=== PATIENT | female | born 1950 | race Two or more races ===

== ENCOUNTER 2022-04-12 18:40 | Inpatient (IN) | payer OTHER ==
[~2022-04-12] VITALS: Ht 160 cm; Wt 89.4 kg
[2022-04-12 18:59] LABS: Basophils # (auto) 0.1 10 ^3/uL (0-0.2); Basophils % (auto) 1.1 % (0.0-2.0); Eosinophils # (auto) 0 10 ^3/uL (0-0.8); Eosinophils % (auto) 0.4 % (0.0-7.0); Hematocrit 37.4 % (36.0-46.0); Hemoglobin 12.4 g/dL (12.2-16.2); Lymphocytes # (auto) 1.9 10 ^3/uL (0.4-5.4); Lymphocytes % (auto) 21.2 % (10.0-50.0); Mean Corpuscular Hemoglobin 31.2 pg (28.0-32.0); Mean Corpuscular Volume 94.3 fL (80.0-100.0); Monocytes # (auto) 0.5 10 ^3/uL (0-1.3); Monocytes % (auto) 5.3 % (0.0-12.0); Neutrophils # (auto) 6.3 10 ^3/uL (1.6-8.6); Nucleated Red Blood Cells % 0.2 %; Red Blood Cells 3.97 10^6/uL (4.0-5.20); Red Cell Distribution Width 14.3 % (11.8-14.3); White Blood Cell 8.8 10^3/uL (4.4-10.8)
[2022-04-12 20:27] LABS: Albumin 3.9 g/dL (3.4-5.0); Potassium 4.9 mmol/L (3.5-5.1)
[2022-04-12 20:31] LABS: BUN/Creatinine Ratio 25.9; Bilirubin, Total 0.9 mg/dL (0.2-1.0); Total Protein 6.8 g/dL (6.4-8.2)
[2022-04-12 20:42] LABS: INR 1.01 (0.9-1.15); Partial Thromboplastin Time 36.7 sec (24.6-33.4)
[2022-04-12] MEDS ORDERED: ENOXAPARIN SOD 80 MG/0.8ML SYRINGE SC ONE (21:00)
[2022-04-12] MEDS ORDERED: ACETAMINOPHEN 325 MG TAB PO PRN (21:30)
[2022-04-12] MEDS ORDERED: ONDANSETRON HCL 4 MG/2 ML VIAL IV PRN (21:30)
[2022-04-12] MEDS ORDERED: NITROGLYCERIN 0.4 MG SL TAB SL PRN (21:30)
[2022-04-12] MEDS ORDERED: MORPHINE SULFATE INJ 2 MG/ml SYRG IV PRN (21:30)
[2022-04-12] MEDS: ATORVASTATIN 20 MG TAB PO SCH (22:04)
[2022-04-12] MEDS ORDERED: PREGABALIN CAPSULE 75 MG CAP PO ONE (23:15)
[2022-04-13 06:39] LABS: Basophils # (auto) 0.1 10 ^3/uL (0-0.2); Basophils % (auto) 1.1 % (0.0-2.0); Eosinophils # (auto) 0.2 10 ^3/uL (0-0.8); Eosinophils % (auto) 4.1 % (0.0-7.0); Hematocrit 37.1 % (36.0-46.0); Hemoglobin 12.4 g/dL (12.2-16.2); Lymphocytes # (auto) 2.7 10 ^3/uL (0.4-5.4); Lymphocytes % (auto) 46.6 % (10.0-50.0); Mean Corpuscular Hemoglobin 31.5 pg (28.0-32.0); Mean Corpuscular Hgb Conc. 33.3 g/dL (32.0-36.0); Mean Corpuscular Volume 94.7 fL (80.0-100.0); Monocytes # (auto) 0.5 10 ^3/uL (0-1.3); Monocytes % (auto) 7.9 % (0.0-12.0); Neutrophils # (auto) 2.4 10 ^3/uL (1.6-8.6); Neutrophils % (auto) 40.3 % (37.0-80.0); Nucleated Red Blood Cells % 0.2 %; Red Blood Cells 3.92 10^6/uL (4.0-5.20); Red Cell Distribution Width 14.1 % (11.8-14.3); White Blood Cell 5.8 10^3/uL (4.4-10.8)
[2022-04-13 06:58] LABS: Potassium 3.7 mmol/L (3.5-5.1)
[2022-04-13 07:03] LABS: Albumin 3.6 g/dL (3.4-5.0); BUN/Creatinine Ratio 20.3; Calcium 8.9 mg/dL (8.5-10.1)
[2022-04-13 07:06] LABS: Bilirubin, Total 0.7 mg/dL (0.2-1.0); Total Protein 6.8 g/dL (6.4-8.2)
[2022-04-13] MEDS: ASPirin 81 mg TAB PO SCH (09:42)
[2022-04-13] MEDS: LISINOPRIL 5 MG TAB PO SCH (09:44)
[2022-04-13] MEDS: ATORVASTATIN 20 MG TAB PO SCH (09:44)
[2022-04-13] MEDS ORDERED: PANTOPRAZOLE 40 MG TAB PO SCH (10:00)
[2022-04-13] MEDS ORDERED: LACTULOSE 20Gm/30ML SOLN PO ONE (11:30)
[2022-04-13] MEDS ORDERED: TICAGRELOR 90 MG TAB PO ONE (14:45)
[2022-04-13] MEDS ORDERED: POTASSIUM EFFERVESENT TAB 25 MEQ PO ONE (15:05)
[2022-04-13 18:51] VITALS: BP 122/56
[2022-04-13] MEDS ORDERED: BUPR100T8 PO (19:30)
[2022-04-13] MEDS ORDERED: BACL10TA PO (19:30)
[2022-04-13] MEDS ORDERED: SIMV-13 PO (19:30)
[2022-04-13] MEDS ORDERED: PREG-109 PO (19:30)
[2022-04-13] MEDS ORDERED: NALT50TA5 PO (19:30)
[2022-04-13] MEDS ORDERED: FLUO40CA PO (19:30)
[2022-04-13] MEDS: TICAGRELOR 90 MG TAB GT SCH (21:46)
[2022-04-13 22:00] VITALS: BP 114/63
[2022-04-14] VITALS (9 sets, daily range): BP systolic 90–112; BP diastolic 42–55
[2022-04-14] MEDS: ASPirin 81 mg TAB PO SCH (09:35)
[2022-04-14] MEDS: TICAGRELOR 90 MG TAB GT SCH (09:36)
[2022-04-14] MEDS: LISINOPRIL 5 MG TAB PO SCH (10:00)
[2022-04-14] MEDS ORDERED: BUPR100T7 PO (10:05)
[2022-04-14] MEDS ORDERED: MIDAZOLAM HCL 2MG/2ML 2ml VIAL (1mg/ml) ONE (11:50)
[2022-04-14] MEDS ORDERED: ANGIOMAX 250 MG VIAL IV ONE (11:50)
[2022-04-14] MEDS ORDERED: fentaNYL CITRATE 100 MCG/2 ML VL ONE (11:50)
[2022-04-14] MEDS ORDERED: SODIUM CHL 0.9% 0 ML ONE (11:50)
[2022-04-14] MEDS ORDERED: IOHEXOL 350 MG/ML 100ML IJ ONE (11:53)
[2022-04-14] MEDS ORDERED: LIDOCAINE 2%HCL (LOCAL ANESTH.) INJ 20ML MDV ONE (11:53)
[2022-04-14] MEDS ORDERED: ATOR20TA50 PO (14:22)
[2022-04-14] MEDS ORDERED: ASPI-325 PO (14:22)
[2022-04-14] MEDS ORDERED: LISI-275 PO (14:22)
[2022-04-14] MEDS ORDERED: TICA90TA PO (14:22)
== END 2022-04-14 17:20 | disposition home or self-care (01) | DRG 282 ==
LOC: EDBD 18:40 → ER 18:44 → TELE 21:28 → TELE-WESTW 04-13 16:41
PROVIDERS: ADMIT Nurse Practitioner; ATTEND Internal Medicine
PROC: 4A023N7 Measurement of Cardiac Sampling and Pressure, Left Heart, Percutaneous Approach (ICD-10-PCS; principal; 2022-04-14)
PROC: B2111ZZ Fluoroscopy of Multiple Coronary Arteries using Low Osmolar Contrast (ICD-10-PCS; 2022-04-14)
PROC: B2151ZZ Fluoroscopy of Left Heart using Low Osmolar Contrast (ICD-10-PCS; 2022-04-14)
DX: I21.4 Non-ST elevation (NSTEMI) myocardial infarction (principal); E78.5 Hyperlipidemia, unspecified; I10 Essential (primary) hypertension; K21.9 Gastro-esophageal reflux disease without esophagitis; F41.9 Anxiety disorder, unspecified; F32.9 Major depressive disorder, single episode, unspecified; E87.6 Hypokalemia; I25.10 Atherosclerotic heart disease of native coronary artery without angina pectoris; G62.9 Polyneuropathy, unspecified; Z20.822 Contact with and (suspected) exposure to COVID-19
CPT/HCPCS: 36415; 71045; 80053; 84484; 85025; 85610; 85730; 86850; 86900; 86901; 87081; 93005; 93306; 93458; 96372; 96374; 96375; 99152; G0378; J2250; J2405